=== PATIENT | female | born 1965 | race Asian ===

== ENCOUNTER 2018-09-18 07:27 | Day surgery (SDC) | payer OTHER, MEDICAID ==
[2018-09-11 08:28] LABS: ADD MAN DIFF? NO
[2018-09-11 08:40] LABS: WHITE BLOOD COUNT 7.6 10^3/ul (4.8-10.8)
[2018-09-11 08:40] LABS: BASOPHILS % 0.5 % (0.0-2.0); EOSINOPHILS # 0.2 10^3/ul (0.0-0.5); EOSINOPHILS % 2.5 % (0.0-7.0); HEMATOCRIT 43.7 % (37.0-47.0); HEMOGLOBIN 14.7 g/dl (12.0-16.0); LYMPHOCYTES # 2.7 10^3/ul (0.8-2.9); LYMPHOCYTES % 34.9 % (15.0-51.0); MEAN CORPUSCULAR HEMOGLOBIN 31.4 pg (29.0-33.0); MEAN CORPUSCULAR HGB CONC 33.6 g/dl (32.0-37.0); MEAN CORPUSCULAR VOLUME 93.4 fl (82.0-101.0); MEAN PLATELET VOLUME 8.6 fl (7.4-10.4); MONOCYTE # 0.5 10^3/ul (0.3-0.9); MONOCYTES % 7.1 % (0.0-11.0); NEUTROPHIL # 4.2 10^3/ul (1.6-7.5); NEUTROPHILS % 54.9 % (39.0-77.0); PLATELET COUNT 270 10^3/UL (140-415); RED BLOOD COUNT 4.68 10^6/ul (4.20-5.40)
[2018-09-11 09:00] LABS: INR 0.89; PARTIAL THROMBOPLASTIN TIME 30.9 Sec (23.0-35.0); PROTIME 12.1 Sec (11.9-14.9); PT RATIO 0.9
[2018-09-11 09:19] LABS: ALANINE AMINOTRANSFERASE 62 IU/L (13-69); ALBUMIN 4.7 g/dl (3.3-4.9); ALBUMIN/GLOBULIN RATIO 1.34; ALKALINE PHOSPHATASE 116 IU/L (42-121); ANION GAP 11 (5-13); ASPARTATE AMINO TRANSFERASE 47 IU/L (15-46); BILIRUBIN,INDIRECT 0.7 mg/dl (0-1.1); BILIRUBIN,TOTAL 0.7 mg/dl (0.2-1.3); BLOOD UREA NITROGEN 15 mg/dl (7-20); CALCIUM 9.9 mg/dl (8.4-10.2); CARBON DIOXIDE 30 mmol/L (21-31); CHLORIDE 104 mmol/L (97-110); CREATININE 0.64 mg/dl (0.44-1.00); Estimated GFR > 60 mL/min (>60); GLUCOSE 101 mg/dl (70-220); POTASSIUM 4.6 mmol/L (3.5-5.1); TOTAL PROTEIN 8.2 g/dl (6.1-8.1)
[2018-09-11 09:39] LABS: SODIUM 145 mmol/L (135-144)
[2018-09-18] MEDS ORDERED: SOD CHLORIDE 0.9% 1,000 ML IV (09:00)
[2018-09-18] MEDS ORDERED: CEFAZOLIN 2 GM/50 ML (PMX) 50 ML IVPB (09:00)
[2018-09-18] MEDS ORDERED: GLYCOPYRROLATE 0.4 MG INJ (11:58)
[2018-09-18] MEDS ORDERED: NEOSTIGMINE 3 MG/3 ML SYRINGE (11:58)
[2018-09-18] MEDS ORDERED: ROCURONIUM 50 MG INJ (11:58)
[2018-09-18] MEDS ORDERED: CEFAZOLIN 1 GM INJ (11:58)
[2018-09-18] MEDS ORDERED: PROPOFOL 20 ML (11:58)
[2018-09-18] MEDS ORDERED: DEXAMETHASONE 4 MG/ML 1 ML INJ (11:59)
[2018-09-18] MEDS ORDERED: MIDAZOLAM 1 MG/ML 2 ML INJ (11:59)
[2018-09-18] MEDS ORDERED: ONDANSETRON 4 MG INJ (11:59)
[2018-09-18] MEDS ORDERED: FENTAnyl 50 MCG/ML VIAL (11:59)
[2018-09-18] MEDS ORDERED: DIPHENHYDRAMINE 50 MG INJ IV (12:00)
[2018-09-18] MEDS ORDERED: LABETALOL HCL 20MG INJ IV (12:00)
[2018-09-18] MEDS ORDERED: HYDROmorphONE 1 MG/5 ML IV SYRINGE IV (12:00)
[2018-09-18] MEDS ORDERED: MIDAZOLAM 1 MG/ML 2 ML INJ IV (12:00)
[2018-09-18] MEDS ORDERED: hydrALAzine 20 MG INJ IV (12:00)
[2018-09-18] MEDS ORDERED: EPHEDrine SULFATE 50 MG/5 ML SYG IV (12:00)
[2018-09-18] MEDS ORDERED: ALBUTEROL 0.083% (NEB) 2.5 MG/3 ML AMP HHN (12:00)
[2018-09-18] MEDS ORDERED: TRIMETHOBENZAMIDE 100 MG/ML VIAL IM (12:00)
[2018-09-18] MEDS ORDERED: FENTAnyl 50 MCG/ML VIAL IV ×2 (12:00)
[2018-09-18] MEDS ORDERED: OXYCODONE/ACETAMINOPHEN (5/325) TAB PO (12:00)
[2018-09-18] MEDS ORDERED: IPRATROPIUM (NEB) 0.5 MG/2.5 ML AMP HHN (12:00)
[2018-09-18] MEDS ORDERED: MEPERIDINE 25 MG INJ IV (12:00)
[2018-09-18] MEDS ORDERED: SUGAMMADEX SODIUM 200 MG/2 ML VIAL IV (12:44)
[2018-09-18] MEDS ORDERED: HYDROCODONE/APAP (7.5/325) TAB PO (13:00)
[2018-09-18] MEDS: HYDROmorphONE 1 MG/5 ML IV SYRINGE IV ×2 (13:18→13:25)
[2018-09-18] MEDS: ONDANSETRON 4 MG INJ IV (13:18)
[2018-09-18 13:23] LABS: ADD MAN DIFF? NO
[2018-09-18 13:24] LABS: BASOPHILS % 0.3 % (0.0-2.0); EOSINOPHILS # 0.1 10^3/ul (0.0-0.5); EOSINOPHILS % 0.7 % (0.0-7.0); HEMATOCRIT 37.9 % (37.0-47.0); HEMOGLOBIN 12.7 g/dl (12.0-16.0); LYMPHOCYTES # 3.1 10^3/ul (0.8-2.9); LYMPHOCYTES % 34.5 % (15.0-51.0); MEAN CORPUSCULAR HEMOGLOBIN 31.6 pg (29.0-33.0); MEAN CORPUSCULAR HGB CONC 33.5 g/dl (32.0-37.0); MEAN CORPUSCULAR VOLUME 94.3 fl (82.0-101.0); MEAN PLATELET VOLUME 8.9 fl (7.4-10.4); MONOCYTE # 0.6 10^3/ul (0.3-0.9); MONOCYTES % 6.9 % (0.0-11.0); NEUTROPHIL # 5.1 10^3/ul (1.6-7.5); NEUTROPHILS % 57.3 % (39.0-77.0); PLATELET COUNT 243 10^3/UL (140-415); RED BLOOD COUNT 4.02 10^6/ul (4.20-5.40); RED CELL DISTRIBUTION WIDTH 11.7 % (11.5-14.5)
[2018-09-18 13:24] LABS: WHITE BLOOD COUNT 8.9 10^3/ul (4.8-10.8)
[2018-09-18] MEDS: FENTAnyl 50 MCG/ML VIAL IV ×2 (13:31→14:19)
[2018-09-18 13:42] LABS: INR 0.98; PROTIME 13.1 Sec (11.9-14.9)
[2018-09-18 13:43] LABS: PARTIAL THROMBOPLASTIN TIME 30.1 Sec (23.0-35.0)
[2018-09-18 13:45] LABS: ALANINE AMINOTRANSFERASE 46 IU/L (13-69); ALBUMIN 3.8 g/dl (3.3-4.9); ALBUMIN/GLOBULIN RATIO 1.11; ALKALINE PHOSPHATASE 93 IU/L (42-121); ANION GAP 8 (5-13); ASPARTATE AMINO TRANSFERASE 37 IU/L (15-46); BILIRUBIN,INDIRECT 0.1 mg/dl (0-1.1); BILIRUBIN,TOTAL 0.1 mg/dl (0.2-1.3); BLOOD UREA NITROGEN 12 mg/dl (7-20); CARBON DIOXIDE 23 mmol/L (21-31); CHLORIDE 111 mmol/L (97-110); CREATININE 0.59 mg/dl (0.44-1.00); Estimated GFR > 60 mL/min (>60); GLUCOSE 90 mg/dl (70-220); POTASSIUM 3.5 mmol/L (3.5-5.1); SODIUM 142 mmol/L (135-144); TOTAL PROTEIN 7.2 g/dl (6.1-8.1)
[2018-09-18 13:51] LABS: CALCIUM 8.3 mg/dl (8.4-10.2)
[2018-09-18] MEDS: MECLIZINE 12.5 MG TAB PO (14:47)
[2018-09-18] MEDS: OXYCODONE/ACETAMINOPHEN (5/325) TAB PO (16:22)
== END 2018-09-18 16:42 | disposition home or self-care (01) ==
LOC: SDS 07:27
DX: C50.912 Malignant neoplasm of unspecified site of left female breast (principal); E78.5 Hyperlipidemia, unspecified
CPT/HCPCS: 19301; 71045; 80053; 84703; 85025; 85610; 85730; 88307; 88361; 93005

== ENCOUNTER 2018-11-03 07:03 | Day surgery (SDC) | payer OTHER, MEDICAID ==
[~2018-11-03 07:03] MED LIST: SEVOFLURANE 15 MIN
[2018-11-03] MEDS: CEFAZOLIN 2 GM/50 ML (PMX) 50 ML IVPB (08:00)
[2018-11-03] MEDS: SOD CHLORIDE 0.9% 1,000 ML IV (08:00)
[2018-11-03] MEDS: ISOSULFAN BLUE 1% 5 ML INJ SC (10:19)
[2018-11-03] MEDS ORDERED: MIDAZOLAM 1 MG/ML 2 ML INJ (10:28)
[2018-11-03] MEDS ORDERED: FENTAnyl 50 MCG/ML VIAL (10:28)
[2018-11-03] MEDS ORDERED: CEFAZOLIN 1 GM INJ (11:22)
[2018-11-03] MEDS ORDERED: PROPOFOL 20 ML (11:22)
[2018-11-03] MEDS ORDERED: LIDOCAINE 2% (SDV) 5 ML INJ (11:22)
[2018-11-03] MEDS ORDERED: METOCLOPRAMIDE 10 MG INJ (11:23)
[2018-11-03] MEDS ORDERED: ONDANSETRON 4 MG INJ ×2 (11:23→11:49)
[2018-11-03] MEDS ORDERED: DEXAMETHASONE 4 MG/ML 5 ML INJ (11:23)
[2018-11-03] MEDS ORDERED: HYDROCODONE/APAP (7.5/325) TAB PO (11:30)
[2018-11-03] MEDS ORDERED: HYDROmorphONE 1 MG/5 ML IV SYRINGE IV ×2 (11:49→12:00)
[2018-11-03] MEDS: HYDROmorphONE 1 MG/5 ML IV SYRINGE IV (11:55)
[2018-11-03] MEDS: ONDANSETRON 4 MG INJ IV ×2 (11:56→20:09)
[2018-11-03] MEDS ORDERED: hydrALAzine 20 MG INJ IV (12:00)
[2018-11-03] MEDS ORDERED: LABETALOL HCL 20MG INJ IV (12:00)
[2018-11-03] MEDS ORDERED: METOCLOPRAMIDE 10 MG INJ IV (12:00)
[2018-11-03] MEDS ORDERED: DIPHENHYDRAMINE 50 MG INJ IV (12:00)
[2018-11-03] MEDS: KETOROLAC 30 MG INJ IV (12:21)
[2018-11-03] MEDS: MEPERIDINE 25 MG INJ IV (12:32)
[2018-11-03] MEDS: FENTAnyl 50 MCG/ML VIAL IV (12:53)
[2018-11-03] MEDS ORDERED: morphine 2 MG INJ IV (13:30)
[2018-11-03] MEDS ORDERED: IBUPROFEN 600 MG TAB PO (13:30)
[2018-11-03] MEDS: D5W-0.45 NACL + KCL 20 MEQ 1,000 ML IV (20:09)
[2018-11-03] MEDS ORDERED: HYDROCODONE/APAP (5/325) TAB PO (22:30)
[2018-11-04] MEDS: D5W-0.45 NACL + KCL 20 MEQ 1,000 ML IV ×2 (04:15→06:00)
[2018-11-04] MEDS: ONDANSETRON 4 MG INJ IV ×2 (04:20→09:19)
[2018-11-04] MEDS: ACETAMINOPHEN 500 MG TAB PO ×2 (04:20→09:20)
[2018-11-04 08:48] LABS: ADD MAN DIFF? NO
[2018-11-04 08:55] LABS: WHITE BLOOD COUNT 15.2 10^3/ul (4.8-10.8)
[2018-11-04 08:55] LABS: BASOPHILS % 0.2 % (0.0-2.0); HEMATOCRIT 35.4 % (37.0-47.0); HEMOGLOBIN 11.9 g/dl (12.0-16.0); LYMPHOCYTES # 1.9 10^3/ul (0.8-2.9); LYMPHOCYTES % 12.4 % (15.0-51.0); MEAN CORPUSCULAR HEMOGLOBIN 31.6 pg (29.0-33.0); MEAN CORPUSCULAR HGB CONC 33.6 g/dl (32.0-37.0); MEAN CORPUSCULAR VOLUME 93.9 fl (82.0-101.0); MONOCYTE # 1.2 10^3/ul (0.3-0.9); MONOCYTES % 7.6 % (0.0-11.0); NEUTROPHIL # 12.1 10^3/ul (1.6-7.5); NEUTROPHILS % 79.3 % (39.0-77.0); PLATELET COUNT 232 10^3/UL (140-415); RED BLOOD COUNT 3.77 10^6/ul (4.20-5.40)
[2018-11-04 09:23] LABS: ANION GAP 8 (5-13); BLOOD UREA NITROGEN 10 mg/dl (7-20); CALCIUM 8.9 mg/dl (8.4-10.2); CARBON DIOXIDE 23 mmol/L (21-31); CHLORIDE 110 mmol/L (97-110); CREATININE 0.59 mg/dl (0.44-1.00); Estimated GFR > 60 mL/min (>60); GLUCOSE 146 mg/dl (70-220); POTASSIUM 4.2 mmol/L (3.5-5.1); SODIUM 141 mmol/L (135-144)
== END 2018-11-04 13:42 | disposition home or self-care (01) ==
LOC: SDS 07:03 → MS1 13:53
DX: D05.12 Intraductal carcinoma in situ of left breast (principal); E78.5 Hyperlipidemia, unspecified
CPT/HCPCS: 19301; 80048; 84703; 85025; 88305; 88307

== ENCOUNTER 2019-03-01 07:45 | Emergency (ER) | payer BC, OTHER ==
[2019-03-01] MEDS: OXYCODONE/ACETAMINOPHEN (5/325) TAB PO (08:24)
[2019-03-01 10:15] LABS: ADD MAN DIFF? NO
[2019-03-01 10:18] LABS: WHITE BLOOD COUNT 6.9 10^3/ul (4.8-10.8)
[2019-03-01 10:18] LABS: BASOPHILS % 0.3 % (0.0-2.0); EOSINOPHILS # 0.1 10^3/ul (0.0-0.5); EOSINOPHILS % 1.6 % (0.0-7.0); HEMATOCRIT 40.1 % (37.0-47.0); HEMOGLOBIN 13.5 g/dl (12.0-16.0); LYMPHOCYTES # 1.4 10^3/ul (0.8-2.9); LYMPHOCYTES % 20.5 % (15.0-51.0); MEAN CORPUSCULAR HEMOGLOBIN 31.9 pg (29.0-33.0); MEAN CORPUSCULAR HGB CONC 33.7 g/dl (32.0-37.0); MEAN CORPUSCULAR VOLUME 94.8 fl (82.0-101.0); MEAN PLATELET VOLUME 8.8 fl (7.4-10.4); MONOCYTE # 0.6 10^3/ul (0.3-0.9); MONOCYTES % 8.3 % (0.0-11.0); NEUTROPHIL # 4.8 10^3/ul (1.6-7.5); PLATELET COUNT 243 10^3/UL (140-415); RED BLOOD COUNT 4.23 10^6/ul (4.20-5.40); RED CELL DISTRIBUTION WIDTH 12.2 % (11.5-14.5)
[2019-03-01 10:37] LABS: ALANINE AMINOTRANSFERASE 70 IU/L (13-69); ALBUMIN 4.3 g/dl (3.3-4.9); ALBUMIN/GLOBULIN RATIO 1.16; ALKALINE PHOSPHATASE 103 IU/L (42-121); ANION GAP 9 (5-13); ASPARTATE AMINO TRANSFERASE 47 IU/L (15-46); BILIRUBIN,INDIRECT 0.5 mg/dl (0-1.1); BILIRUBIN,TOTAL 0.5 mg/dl (0.2-1.3); BLOOD UREA NITROGEN 12 mg/dl (7-20); CALCIUM 9.3 mg/dl (8.4-10.2); CARBON DIOXIDE 27 mmol/L (21-31); CHLORIDE 106 mmol/L (97-110); CREATININE 0.66 mg/dl (0.44-1.00); Estimated GFR > 60 mL/min (>60); GLUCOSE 109 mg/dl (70-220); POTASSIUM 4.9 mmol/L (3.5-5.1); SODIUM 142 mmol/L (135-144)
[2019-03-01] MEDS: LIDOCAINE 1%/EPI (MDV) 50 ML INJ INJ ×2 (13:00→13:32)
[2019-03-01] MEDS: LIDOCAINE 1%/EPI (MDV) 30 ML INJ INJ (13:32)
== END 2019-03-01 15:33 | disposition home or self-care (01) ==
LOC: FTE 15:33
DX: N63.20 Unspecified lump in the left breast, unspecified quadrant (principal)
CPT/HCPCS: 76642; 80053; 85025; 99284-25